=== PATIENT | male | born 1965 | race Caucasian/White ===

== ENCOUNTER 2020-04-26 22:22 | Emergency (ER) | payer OTHER ==
[~2020-04-26] VITALS: Ht 177.8 cm; Wt 77.6 kg
[2020-04-26 22:27] VITALS: BP 135/76
[2020-04-26] MEDS ORDERED: KETOROLAC 60 MG/2 ML VIAL IM ONE (23:40)
[2020-04-27] MEDS ORDERED: KETOROLAC 60 MG/2 ML VIAL IM ONE (01:24)
--- NOTE | 2020-04-27 01:25 | NUR ---
SEEN AMD EXAMINED BY KAREEM WITH ORDERS AND CARRIED OUT
--- NOTE | 2020-04-27 01:30 | NUR ---
MEDICATED PER [facility] ORDER, PATIENT TOLERATED WELL
[2020-04-27 06:05] VITALS: BP 135/76
--- NOTE | 2020-04-27 06:05 | NUR ---
Patient discharged with v/s stable. Written and verbal after care instructions given and explained. Patient alert, oriented and verbalized understanding of instructions. Ambulatory with steady gait. All questions addressed prior to discharge. ID band removed. Patient advised to follow up with PMD. Rx of MOTRIN 400MG, PREDNISONE 20MG given. Patient educated on indication of medication including possible reaction and side effects. Opportunity to ask questions provided and answered.
== END 2020-04-27 06:05 | disposition home or self-care (01) ==
LOC: EDBD 22:22 → MED 22:22
DX: M17.0 Bilateral primary osteoarthritis of knee (principal)
CPT/HCPCS: 96372; 99283; J1885

== ENCOUNTER 2020-05-16 12:09 | Emergency (ER) | payer OTHER ==
[~2020-05-16] VITALS: Ht 177.8 cm; Wt 86.2 kg
[2020-05-16 12:15] VITALS: BP 141/86
--- NOTE | 2020-05-16 12:38 | NUR ---
DIARRHEA X1 MONTH; PT STATES HE IS HOMELESS, ALSO C/O RASH/EXCORIATION TO INNER GROIN AREAS AND BUTTOCK REGION
--- NOTE | 2020-05-16 13:30 | NUR ---
Pt seated upright awake and alert in tent. Denies pain at this time. VSS
[2020-05-16 13:35] VITALS: BP 132/76
--- NOTE | 2020-05-16 13:35 | NUR ---
Patient discharged with v/s stable. Written and verbal after care instructions given and explained. Patient alert, oriented and verbalized understanding of instructions. Ambulatory with steady gait. All questions addressed prior to discharge. ID band removed. Patient advised to follow up with PMD. Rx of IMMODIUM &NYSTATIN/TRIAMCINOLONE ACETONIDE given. Patient educated on indication of medication including possible reaction and side effects. Opportunity to ask questions provided and answered.
== END 2020-05-16 13:35 | disposition home or self-care (01) ==
LOC: MED 12:09
DX: R19.7 Diarrhea, unspecified (principal); L30.4 Erythema intertrigo; I51.9 Heart disease, unspecified; Z98.890 Other specified postprocedural states
CPT/HCPCS: 99283

== ENCOUNTER 2021-08-01 19:33 | Emergency (ER) | payer MEDICAID, OTHER ==
[~2021-08-01] VITALS: Ht 172.7 cm; Wt 81.6 kg
[2021-08-01 19:36] VITALS: BP 141/100
--- NOTE | 2021-08-01 19:43 | NUR ---
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
--- NOTE | 2021-08-01 19:43 | NUR ---
PT ANGEL ALS. TAKEN TO BED 4
--- NOTE | 2021-08-01 19:46 | NUR ---
X-Ray at bedside.
[2021-08-01 20:11] LABS: BASOPHILS # (AUTO) 0.1 K/uL (0.00-0.22); BASOPHILS % (AUTO) 1.4 % (0.0-2.0); EOSINOPHILS # (AUTO) 0.4 K/uL (0-0.4); EOSINOPHILS % (AUTO) 6.3 % (0.0-4.0); HEMATOCRIT 37.6 % (36-52); HEMOGLOBIN 12.1 g/dL (12.0-18.0); LYMPHOCYTES # (AUTO) 1.6 K/uL (2.0-11.5); LYMPHOCYTES % (AUTO) 24.4 % (20.5-51.1); MEAN CORPUSCULAR HEMOGLOBIN 26 pg (27-31); MEAN CORPUSCULAR HGB CONC 32 g/dL (33-37); MONOCYTES # (AUTO) 0.5 K/uL (0.8-1.0); MONOCYTES % (AUTO) 7.8 % (1.7-9.3); NEUTROPHILS # (AUTO) 3.9 K/uL (1.8-7.7); NEUTROPHILS % (AUTO) 60.1 % (42.2-75.2); PLATELET COUNT (AUTO) 282 K/uL (140-450); RED BLOOD CELL COUNT(AUTO) 4.64 MIL/uL (4.20-6.10); WHITE BLOOD COUNT (AUTO) 6.4 K/uL (4.8-10.8)
[2021-08-01 20:34] LABS: ALBUMIN 3.1 g/dL (3.4-5.0); ANION GAP 13.4 (8-16); CARBON DIOXIDE 25.4 mmol/L (21-32); CREATININE 1.1 mg/dL (0.6-1.3); POTASSIUM 3.8 mmol/L (3.5-5.1); TOTAL BILIRUBIN 0.8 mg/dL (0.0-1.0)
[2021-08-01] MEDS: FUROSEMIDE 40 MG/4 ML VIAL IVP ONE (20:50)
--- NOTE | 2021-08-01 21:00 | NUR ---
PROVIDED PATIENT URINAL.
[2021-08-01] MEDS ORDERED: FURO-572 PO (22:30)
--- NOTE | 2021-08-01 22:40 | NUR ---
IV removed, catheter intact and site benign. Applied folded 4x4 gauze and tape to stop bleeding.
[2021-08-01 22:44] VITALS: BP 121/72
--- NOTE | 2021-08-01 22:44 | NUR ---
Patient discharged with v/s stable. Written and verbal after care instructions given and explained. Patient alert, oriented and verbalized understanding of instructions. Ambulatory with steady gait. All questions addressed prior to discharge. ID band removed. Patient advised to follow up with PMD. Rx of LASIX given. Patient educated on indication of medication including possible reaction and side effects. Opportunity to ask questions provided and answered.
== END 2021-08-01 22:44 | disposition home or self-care (01) ==
LOC: MED 19:33
DX: R60.0 Localized edema (principal); F15.90 Other stimulant use, unspecified, uncomplicated; I50.9 Heart failure, unspecified; Z79.899 Other long term (current) drug therapy
CPT/HCPCS: 36415; 71045; 80053; 83880; 84484; 85025; 93005; 96374; 99285; J1940